=== PATIENT | female | born 1970 | race Caucasian/White ===

== ENCOUNTER → 2018-04-17 | Outpatient (CLI) | payer OTHER | LOC: CFH 12:42 | PROVIDERS: ATTEND Obstetrics & Gynecology | DX: Z12.31 Encounter for screening mammogram for malignant neoplasm of breast (principal) | CPT/HCPCS: 77063; 77067 ==

== ENCOUNTER → 2021-02-06 | Outpatient (CLI) | payer OTHER | END | disposition home or self-care (01) | LOC: CFH 07:35 | PROVIDERS: ATTEND Clinical Nurse Specialist Women's Health | DX: N60.02 Solitary cyst of left breast (principal); N64.4 Mastodynia | CPT/HCPCS: 76642; 77062; 77066; G0279 ==